=== PATIENT | male | born 1990 | race Caucasian/White ===

== ENCOUNTER 2016-12-16 18:13 | Observation (INO) ==
[2016-12-16] MEDS ORDERED: Ondansetron 4 MG/2 ML VIAL IVP ONE (18:27)
[2016-12-16] MEDS ORDERED: *HR* HYDROmorphone (PF) 1 MG/ML SYRINGE IVP ONE (18:27)
[2016-12-16] MEDS ORDERED: 0.9 % Sodium Chloride 1,000 ML IVC ONE (18:27)
--- NOTE | 2016-12-16 18:31 | Emergency Department Note ---
Disposition Clinical Impression: Acute appendicitis Qualifiers: Acute appendicitis type: unspecified acute appendicitis type Qualified Code(s) : K35.80 - Unspecified acute appendicitis Disposition: Admitted As Inpatient Condition: Good Referrals: NO,PCP [Primary Care Provider] - Forms: Work/School Release, ED Satisfaction Letter Time of Disposition: 19:57 Abdominal Pain HPI - General Chief Complaint: ED Abdominal Pain Stated Complaint: abd pain, n/v Time Seen by Provider: 12/16/16 18:24 Source: patient Mode of arrival: ambulatory Limitations: no limitations Nursing Notes Reviewed: Yes Vital Signs Reviewed: Yes - History of Present Illness HPI Narrative: Patient presents to the ED the chief complaint of abdominal pain, nausea and vomiting. Onset was about 2 days ago. Located suprapubically and around his umbilicus, but has since moved to the right lower quadrant. Associated decreased appetite. Has had nausea and nonbloody, nonbilious vomiting with anything yesterday. Pain feels sharp and stabbing, mainly in his right lower quadrant, nonradiating. Abdomen feels much more distended today and states that he cannot take the pain anymore. Denies any IV drug use. Does use marijuana. No chest pain, shortness of breath. No history of kidney stones. No family history of kidney stones. No hematuria, testicular pain, penile discharge or dysuria. Pain Scale: 10 - Related Data Allergies Allergy/AdvReac Type Severity Reaction Status Date / Time No Known Allergies Allergy Verified 12/16/16 18:17 All systems ED: reviewed and negative except as stated. Gastrointestinal: Reports: abdominal pain, nausea, vomiting. Denies: diarrhea Musculoskeletal: Denies: back pain Abdominal Pain PMH - Past Medical History Medical history: Reports: no medical history Male Surgical History: Reports: orthopedic, other Psychiatric history: Reports: no psych history - Social History Smoking status: Never smoker Alcohol use: Reports: none Drug use: Reports: marijuana Physical Exam - General Limitations: no limitations General appearance: alert, anxious, in distress (in pain, rolling around on bed holding RLQ ) - Head Head exam: atraumatic, normocephalic, normal inspection - ENT ENT exam: mucous membranes dry - Respiratory Respiratory exam: Present: normal lung sounds bilaterally - Cardiovascular Cardiovascular exam: Present: regular rate, normal rhythm, normal heart sounds - Abdominal Exam Abdominal exam: Present: soft, tenderness, distention, guarding, diminished bowel sounds, tenderness at McBurney's Point. Absent: rebound, rigidity Abdominal tenderness: Present: RLQ, moderate - Extremities Exam Extremities exam: Present: normal inspection, full ROM. Absent: tenderness, pedal edema - Back Exam Back exam: Present: normal inspection, full ROM. Absent: tenderness, CVA tenderness (R), CVA tenderness (L) - Neurological Exam Neurological exam: Present: alert, oriented X3 - Psychiatric Psychiatric exam: Present: anxious - Skin Skin exam: Present: warm, dry, intact, normal color Course Course Narrative: 26 y/o M with abd pain. Rolling around on cot, seems uncomfortable. Abd exam difficult to obtain due to guarding, appears voluntary. Will get labs, CT, pain control. - Reevaluation(s) Reevaluation #1: Patient has appendicitis. 9 mm, nonpertinent mild stranding. Spoke with Dr. Ivory with surgery. He will be in to evaluate the patient. The patient more comfortable now. Time: 19:56 Vital Signs Temperature 98.3 F 12/16/16 18:15 Pulse Rate 98 12/16/16 18:15 Respiratory Rate 18 12/16/16 18:15 Blood Pressure 168/97 12/16/16 18:15 O2 Sat by Pulse Oximetry 99 12/16/16 18:15 Temperature 98.3 F 12/16/16 18:15 Pulse Rate 74 12/16/16 18:58 Respiratory Rate 18 12/16/16 18:58 Blood Pressure 153/111 12/16/16 18:58 O2 Sat by Pulse Oximetry 99 12/16/16 18:58 Oxygen Delivery Oxygen Delivery Room Air Abdominal Pain - Lab Data Result diagrams: 12/16/16 18:58 12/16/16 18:58 Lab Results 12/16/16 12/16/16 12/16/16 Range/Units 18:58 18:58 18:58 WBC 13.2 H (4.3-11.1) K/mcL RBC 5.73 H (4.19-5.50) M/mcL Hgb 16.6 (12.9-16.9) g/dL Hct 50.0 (37.5-50.1) % MCV 87.3 (83.0-100.0) fL MCH 29.0 (28.0-33.3) pg MCHC 33.2 (31.6-35.5) g/dL RDW 12.9 (11.5-14.5) % Plt Count 149 (140-400) K/mcL MPV 10.3 (9.4-12.4) fL Immature Gran % 0.5 (0-4) % Seg Neutrophils % 92.2 % Lymphocytes % 5.0 % Monocytes % 1.9 % Eosinophils % 0.2 % Basophils % 0.2 % Neutrophils # 12.2 H (1.6-8.9) K/mcL Lymphocytes # 0.7 (0.6-4.6) K/mcL Monocytes # 0.3 (0.0-1.3) K/mcL Eosinophils # 0.0 (0.0-0.6) K/mcL Basophils # 0.0 (0.0-0.2) K/mcL PT 14.1 H (9.4-12.1) Seconds INR 1.3 APTT 25.2 L (26.0-36.0) Seconds Sodium 139 (136-145) mEq/L Potassium 4.1 (3.5-4.5) mEq/L Chloride 101 (98-109) mEq/L Carbon Dioxide 30 H (19-29) mEq/L BUN 24 (8-26) mg/dL Creatinine 0.91 (0.72-1.25) mg/dL Est GFR ( Amer) > 60 (> 60) Est GFR (Non-Af Amer) > 60 (> 60) BUN/Creatinine Ratio 26 (6-26) Glucose 103 H (70-99) mg/dL Calculated Osmolality 292 (280-300) Lactic Acid (0.5-2.2) mmol/L Calcium 9.2 (8.6-10.8) mg/dL Total Bilirubin 0.9 (0.2-1.2) mg/dL Direct Bilirubin 0.3 (0.0-0.5) mg/dL Indirect Bilirubin 0.6 (0.0-1.2) mg/dL AST 38 H (5-34) Units/L ALT 39 (0-55) Units/L Alkaline Phosphatase 57 (38-126) Units/L Serum Total Protein 7.6 (6.0-8.3) g/dL Albumin 3.8 (3.5-5.0) g/dL Globulin 3.8 H (2.4-3.5) g/dL Albumin/Globulin Ratio 1.0 L (1.1-2.2) Lipase 31 (8-78) Units/L 12/16/16 Range/Units 18:58 WBC (4.3-11.1) K/mcL RBC (4.19-5.50) M/mcL Hgb (12.9-16.9) g/dL Hct (37.5-50.1) % MCV (83.0-100.0) fL MCH (28.0-33.3) pg MCHC (31.6-35.5) g/dL RDW (11.5-14.5) % Plt Count (140-400) K/mcL MPV (9.4-12.4) fL Immature Gran % (0-4) % Seg Neutrophils % % Lymphocytes % % Monocytes % % Eosinophils % % Basophils % % Neutrophils # (1.6-8.9) K/mcL Lymphocytes # (0.6-4.6) K/mcL Monocytes # (0.0-1.3) K/mcL Eosinophils # (0.0-0.6) K/mcL Basophils # (0.0-0.2) K/mcL PT (9.4-12.1) Seconds INR APTT (26.0-36.0) Seconds Sodium (136-145) mEq/L Potassium (3.5-4.5) mEq/L Chloride (98-109) mEq/L Carbon Dioxide (19-29) mEq/L BUN (8-26) mg/dL Creatinine (0.72-1.25) mg/dL Est GFR ( Amer) (> 60) Est GFR (Non-Af Amer) (> 60) BUN/Creatinine Ratio (6-26) Glucose (70-99) mg/dL Calculated Osmolality (280-300) Lactic Acid 1.3 (0.5-2.2) mmol/L Calcium (8.6-10.8) mg/dL Total Bilirubin (0.2-1.2) mg/dL Direct Bilirubin (0.0-0.5) mg/dL Indirect Bilirubin (0.0-1.2) mg/dL AST (5-34) Units/L ALT (0-55) Units/L Alkaline Phosphatase (38-126) Units/L Serum Total Protein (6.0-8.3) g/dL Albumin (3.5-5.0) g/dL Globulin (2.4-3.5) g/dL Albumin/Globulin Ratio (1.1-2.2) Lipase (8-78) Units/L S.B.A.R. - S.DroisAShar Situation: Demographics, MOA Background: Presenting Complaint, Relevant PMH, Meds, & Allergies Assessment: Vital Signs, Course and respsone to treatment, Exam Concerns, Patient/Family Expectation, Pertinant Lab Results, Outstanding Labs Recommendation: Barrier(s) to disposition, Recommendation based on pending studies, treatments, or consults S.B.A.RTruong Report Given to: Dr. Cachorro Silverman Repor Time: 19:58 Attestation Statement - Attestation Attestation: I examined this patient and my medical decision-making was reviewed with the STAND GRINDER/PA/Advanced Practice Nurse/Resident Physician. I agree with the documented findings, disposition and treatment plan as described except to the extent set forth below. 26-year-old male presents ED because of abdominal pain. He has had 48 hours of pain in his lower abdomen that is now more intense and more the right lower quadrant. Complains of nausea and vomiting. No diarrhea. No fever. No chills. No dysuria, hematuria or polyuria. No flank or back pain. Patient appears very uncomfortable. He is awake alert and oriented. Oropharynx is clear. Mucous membranes dry. Chest is clear to auscultation bilaterally. Cardiac exam regular. Abdomen bowel sounds are normal throughout. He has moderate tenderness in the suprapubic and right lower quadrants. Left abdomen nontender. Flanks are nontender. No inguinal adenopathy or hernia appreciated. He is given 2 L of IV fluid along with pain control measures. White count 13,000 CT of the abdomen consistent with acute appendicitis. Case was discussed with on-call surgeon, Dr. Ivory, and he will see the patient in the ED and prepare for Surgery.
[2016-12-16 19:09] LABS: Basophils % 0.2 %; Eosinophils % 0.2 %; Hemoglobin 16.6 g/dL (12.9-16.9); Immature Granulocytes % 0.5 % (0-4); Lymphocytes # 0.7 K/mcL (0.6-4.6); Mean Corpuscular HGB Conc 33.2 g/dL (31.6-35.5); Mean Corpuscular Volume 87.3 fL (83.0-100.0); Mean Platelet Volume 10.3 fL (9.4-12.4); Monocytes # 0.3 K/mcL (0.0-1.3); Monocytes % 1.9 %; Neutrophils # 12.2 K/mcL (1.6-8.9); Platelet Count 149 K/mcL (140-400); Red Blood Count 5.73 M/mcL (4.19-5.50); Red Cell Distribution Width 12.9 % (11.5-14.5); Segmented Neutrophils % 92.2 %
[2016-12-16 19:12] LABS: INR 1.3; Prothrombin Time 14.1 Seconds (9.4-12.1)
[2016-12-16 19:15] LABS: Activated Partial Thrombo Time 25.2 Seconds (26.0-36.0)
[2016-12-16 19:19] LABS: Alanine Aminotransferase 39 Units/L (0-55); Albumin 3.8 g/dL (3.5-5.0); Alkaline Phosphatase 57 Units/L (38-126); Aspartate Amino Transferase 38 Units/L (5-34); BUN/Creatinine Ratio 26 (6-26); Bilirubin,Direct 0.3 mg/dL (0.0-0.5); Bilirubin,Indirect 0.6 mg/dL (0.0-1.2); Bilirubin,Total 0.9 mg/dL (0.2-1.2); Blood Urea Nitrogen 24 mg/dL (8-26); Calcium 9.2 mg/dL (8.6-10.8); Carbon Dioxide 30 mEq/L (19-29); Chloride 101 mEq/L (98-109); Globulin 3.8 g/dL (2.4-3.5); Glucose 103 mg/dL (70-99); Lipase 31 Units/L (8-78); Osmolality,Calculated 292 (280-300); Potassium 4.1 mEq/L (3.5-4.5); Sodium 139 mEq/L (136-145); Total Protein 7.6 g/dL (6.0-8.3); eGFR For African Americans > 60 (> 60); eGFR For Non-African Americans > 60 (> 60)
[2016-12-16] MEDS ORDERED: Ringers Solution, Lactated 1,000 ML IVC ONE ×2 (19:55)
--- NOTE | 2016-12-16 20:35 | General Surg History&Physical ---
Date of Encounter: 12/16/16 Time of Encounter: 20:33 Assessment and Plan (1) Acute appendicitis Current Visit: Yes Status: Acute The assessment and plan as outlined above was discussed with the patient and/or family members who expressed understanding and agreement. All questions were answered. I personally reviewed the CT scan images and report and agree that he has evidence of acute appendicitis. I explained to the patient that we will proceed with a laparoscopic appendectomy. Risks and benefits have been discussed with the patient, and he agrees to the above plan. Qualifiers: Acute appendicitis type: with localized peritonitis Qualified Code(s): K35.3 - Acute appendicitis with localized peritonitis History of Present Illness Chief complaint: Lower abdominal pain HPI: Mr. Kirk is a 26 year old male with no significant past medical history who states that over the past two days he has been having lower periumbical pain that has been progressively worsening. The pain is sharp and continuous and he states that he has to sleep or roll on his left side in order to "get comfortable." He admits to nausea and vomiting and denies any diarrhea or constipation. Past Med Surg Social Fam HX - Past Medical History Medical history: no medical history Psychiatric history: no psych history - Past Surgical History Surgical History: herniorrhaphy (bilateral hernia repair (as a child)), other ( Left shoulder pinning) - Social History Smoking Status: Never smoker Smokeless Tobacco Status: No Alcohol use: none Drug use: marijuana Medications and Allergies No Known Home Drugs 12/16/16 [History] Allergies No Known Allergies Allergy (Verified 12/16/16 18:17) Review of Systems All systems PM: reviewed and no additional remarkable complaints except as stated (Drug rehabilitation history) All systems PM: A 10-system review of systems was performed and is negative for pertinent findings except as documented above in the HPI. General Surgery Exam Initial Vital Signs Temp Pulse Resp BP Pulse Ox 98.3 F 98 18 168/97 99 12/16/16 18:15 12/16/16 18:15 12/16/16 18:15 12/16/16 18:15 12/16/16 18:15 - Eyes PERRL, normal ocular movement - Respiratory normal expansion, normal respiratory effort, clear to auscultation - Cardiovascular Cardiovascular exam: Present: RRR, no murmurs/rubs/gallops - Abdomen Abdomen general surgery: Present: bowel sounds present (flat, mildly rigid. Positive pain to palpation RLQ>LLQ) - Integumentary Integumentary general surgery: Present: warm and dry - Neurologic Present: CN 2-12 grossly intact - Musculoskeletal Present: other (No clubbing, cyanosis, or edema) - Psychiatric Psychiatric general surgery: Present: A&Ox3 Results - Labs 12/16/16 18:58 12/16/16 18:58 Abnormal lab results WBC 13.2 K/mcL (4.3-11.1) H 12/16/16 18:58 RBC 5.73 M/mcL (4.19-5.50) H 12/16/16 18:58 Neutrophils # 12.2 K/mcL (1.6-8.9) H 12/16/16 18:58 PT 14.1 Seconds (9.4-12.1) H 12/16/16 18:58 APTT 25.2 Seconds (26.0-36.0) L 12/16/16 18:58 Carbon Dioxide 30 mEq/L (19-29) H 12/16/16 18:58 Glucose 103 mg/dL (70-99) H 12/16/16 18:58 AST 38 Units/L (5-34) H 12/16/16 18:58 Globulin 3.8 g/dL (2.4-3.5) H 12/16/16 18:58 Albumin/Globulin Ratio 1.0 (1.1-2.2) L 12/16/16 18:58 Diabetes panel 12/16/16 Range/Units 18:58 Sodium 139 (136-145) mEq/L Potassium 4.1 (3.5-4.5) mEq/L Chloride 101 (98-109) mEq/L Carbon Dioxide 30 H (19-29) mEq/L BUN 24 (8-26) mg/dL Creatinine 0.91 (0.72-1.25) mg/dL Glucose 103 H (70-99) mg/dL Calcium 9.2 (8.6-10.8) mg/dL AST 38 H (5-34) Units/L ALT 39 (0-55) Units/L Alkaline Phosphatase 57 (38-126) Units/L Albumin 3.8 (3.5-5.0) g/dL Calcium panel 12/16/16 Range/Units 18:58 Calcium 9.2 (8.6-10.8) mg/dL Albumin 3.8 (3.5-5.0) g/dL Pituitary panel 12/16/16 Range/Units 18:58 Sodium 139 (136-145) mEq/L Potassium 4.1 (3.5-4.5) mEq/L Chloride 101 (98-109) mEq/L Carbon Dioxide 30 H (19-29) mEq/L BUN 24 (8-26) mg/dL Creatinine 0.91 (0.72-1.25) mg/dL Glucose 103 H (70-99) mg/dL Calcium 9.2 (8.6-10.8) mg/dL Adrenal panel 12/16/16 Range/Units 18:58 Sodium 139 (136-145) mEq/L Potassium 4.1 (3.5-4.5) mEq/L Chloride 101 (98-109) mEq/L Carbon Dioxide 30 H (19-29) mEq/L BUN 24 (8-26) mg/dL Creatinine 0.91 (0.72-1.25) mg/dL Glucose 103 H (70-99) mg/dL Calcium 9.2 (8.6-10.8) mg/dL Total Bilirubin 0.9 (0.2-1.2) mg/dL AST 38 H (5-34) Units/L ALT 39 (0-55) Units/L Alkaline Phosphatase 57 (38-126) Units/L Albumin 3.8 (3.5-5.0) g/dL All other labs normal. - Imaging CT scan - abdomen: report reviewed, image reviewed (Evidence of acute appendicitis. No free air. No free fluid.)
--- NOTE | 2016-12-16 20:36 | Anesthesia Evaluation PreOp ---
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: Denies Any Significant HX Other Medical History: Denies Any Significant HX, Other (subutex use) Anesthesia History: No Prior Anesthetic Complications, Past Anesthesia (shoulder ) Alcohol Use: none Drug use: marijuana Medications and Allergies No Known Home Drugs 12/16/16 [History] Allergies No Known Allergies Allergy (Verified 12/16/16 18:17) - Meds/Allergy Pre-op Review Medications Reviewed: Yes Allergies Reviewed: Yes Beta Blockers on Current Med List: No Anesthesia Results - Labs 12/16/16 18:58 12/16/16 18:58 Anesthesia Exam Last Vital Signs Temp 98.3 F 12/16/16 18:15 Pulse 74 12/16/16 18:58 Resp 18 12/16/16 20:48 BP 159/98 12/16/16 20:48 Pulse Ox 99 12/16/16 18:58 Weight: 82 kg NPO (# of Hours): >> 8 hrs - HEENT Pupil (Motor): Pupils equal, EOMI Mallampati: II Teeth: Normal Oral Opening: Greater than 3 - LEAD VULCANIZING OPERATOR LOC: Oriented LEAD VULCANIZING OPERATOR Motor: Normal RUE, Normal LUE, Normal RLE, Normal LLE, Normal Face LEAD VULCANIZING OPERATOR Sensory: Normal: RUE, LUE, RLE, LLE, Face - Cardiac Rhythm: Regular Murmur: None - Pulmonary Breath Sounds: bilateral Clear Respiratory Effort: Symmetrical Anesthesia Assess/Plan ASA Score: 2 Modified Scotty Scale for Level of Consciousness: Cooperative, oriented, and tranquil Anesthetic Plan: General Monitoring Plan: Standard Monitors Recovery Plan: PACU
[2016-12-16] MEDS ORDERED: *HR* Succinylcholine 200 MG/10 ML VIAL IVP ONE (20:39)
[2016-12-16] MEDS ORDERED: Lidocaine -MPF 2% 2 ML VIAL ONE (20:39)
[2016-12-16] MEDS ORDERED: *HR* Propofol 200 MG/20 ML VIAL IVP ONE (20:39)
[2016-12-16] MEDS ORDERED: *HR* FentaNYL (PF) 100 MCG/2 ML VIAL ONE (20:42)
[2016-12-16] MEDS ORDERED: *HR* Phenylephrine 10 MG/ML VIAL ONE (20:43)
[2016-12-16] MEDS ORDERED: *HR* Midazolam HCl 2 MG/2 ML VIAL ONE (20:43)
[2016-12-16] MEDS ORDERED: *HR* Promethazine 25 MG/ML VIAL IVP PRN (20:59)
[2016-12-16] MEDS ORDERED: *HR* HYDROmorphone (PF) 1 MG/ML SYRINGE IVP PRN (20:59)
[2016-12-16] MEDS ORDERED: CefOXitin 2,000 MG VIAL IVPB ONE (21:01)
[2016-12-16] MEDS ORDERED: PROMETHAZINE IVP PRN (21:03)
[2016-12-16] MEDS ORDERED: SODIUM CHLORIDE 0.9% IVP PRN (21:03)
[2016-12-16] MEDS ORDERED: Ketamine *HR* 500 MG/10 ML MDV ONE (21:25)
[2016-12-16] MEDS ORDERED: Ondansetron 4 MG/2 ML VIAL ONE (21:25)
[2016-12-16] MEDS ORDERED: Dexamethasone 4 MG/ML VIAL ONE (21:25)
[2016-12-16] MEDS ORDERED: Ketorolac 30 MG/ML VIAL ONE (21:25)
[2016-12-16] MEDS ORDERED: Neostigmine Methylsulfate 3 MG/3 ML SYRINGE ONE (21:28)
[2016-12-16] MEDS ORDERED: *HR* HYDROmorphone 2 MG/ML SYRINGE ONE (21:37)
--- NOTE | 2016-12-16 21:54 | Operative Note ---
Date of procedure: 12/16/16 Pre-op diagnosis: Acute appendicitis Post-op diagnosis: same Procedure: Laparoscopic appendectomy Anesthesia: GETAntoine Surgeon: Douglas Ivory Specimen: appendix Condition: stable Disposition: PACU Procedure in Detail: Date of surgery: 12/16/16 After properly identifying the patient, the patient was brought to the operating room and placed in supine position. After proper IV sedation was achieved followed by general endotracheal intubation, the patient's abdomen was prepped and draped in a normal sterile fashion. A timeout was performed noting the patient's name and procedure to be performed. A subumbilical incision with an 11 blade scalpel was made down to the level of the rectus fascia. The rectus fascia was incised and the abdomen was entered and a 12 mm port was placed through the port followed by insufflation with carbon dioxide. A laparoscopic camera was placed through the port which showed no injury to the interabdominal organs upon entry. A suprapubic 5 mm port in the left lower quadrant 5 mm port was then placed under direct camera visualization. The right lower quadrant was examined and the appendix was noted to be distended, erythematous and even partially necrotic. The appendix was retracted anteriorly with a nontraumatic grasper. The base of the appendix and then measle appendix were dissected with the [place] dissector. The base of the appendix was then transected with a laparoscopic NOE stapler. The mesoappendix was likewise transected with a laparoscopic NOE stapler. The appendix were then removed from the abdomen via an Endobag. The right lower quadrant and pelvis were copiously irrigated with normal saline solution. Reinspection of the right lower quadrant demonstrated maintenance of hemostasis. All ports were then removed from the abdomen after the abdomen was desufflated. The rectus fascia for the subumbilical incision was closed with a figure-of- eight 0 Vicryl suture. Subcutaneous tissue was reapproximated with a 3-0 Vicryl suture. The epidermal and dermal layers for the remaining incisions were closed with 4-0 Monocryl sutures. Needle, sponge, and instrument counts were correct 2 and the incisions were covered with Steri-Strips and Band-Aids. The patient was aroused from IV sedation, extubated in the operating room without complication, and transported to the recovery room stable condition.
[2016-12-16] MEDS ORDERED: *HR* Midazolam HCl 2 MG/2 ML VIAL IVP PRN (22:15)
[2016-12-16] MEDS ORDERED: Acetaminophen IV 1,000 MG/100 ML INFUS..BTL IVPB ONE (22:30)
[2016-12-16] MEDS ORDERED: Acetaminophen IV 1,000 MG/100 ML INFUS..BTL ONE (22:32)
--- NOTE | 2016-12-16 22:50 | Anesthesia Evaluation Post Op ---
Date of Encounter: 12/16/16 Time of Encounter: 22:49 - Vital Signs Vital Signs: Last Vital Signs Temp 100.4 F H 12/16/16 22:45 Pulse 85 12/16/16 22:45 Resp 16 12/16/16 22:45 BP 150/86 12/16/16 22:45 Pulse Ox 94 12/16/16 22:45 - Lungs Lungs: Clear Ascult./Percussion - Airway Airway: Non-obstructed - Cardiovascular Regular Rate - Mental Status Mental Status: Alert & Oriented, Answers Appropriately - Pain Pain Scale: 2 - Nausea Vomiting Nausea Vomiting: Not Present - Hydration Hydration: Ice chips - Discharge PostOp Status: Transfer Patient to floor
[2016-12-16] MEDS ORDERED: *HR* OxyCODONE/APAP 10/325 TABLET PO PRN (22:55)
[2016-12-16] MEDS ORDERED: 0.9 % Sodium Chloride 1,000 ML IVC SCH (22:55)
[2016-12-16] MEDS: *HR* HYDROmorphone (PF) 1 MG/ML SYRINGE IVP PRN (23:14)
[2016-12-16] MEDS: cefOXitin 1,000 MG in D5% in Water (Mini-Bag+) 100 ML IVPB SCH (23:20)
[2016-12-17] MEDS ORDERED: Ketorolac 30 MG/ML VIAL IM SCH
[2016-12-17] MEDS: Ketorolac 30 MG/ML VIAL IVP SCH ×2 (00:36→06:14)
[2016-12-17] MEDS: cefOXitin 1,000 MG in D5% in Water (Mini-Bag+) 100 ML IVPB SCH ×2 (00:37→07:52)
[2016-12-17 03:45] LABS: Basophils % 0.1 %; Hemoglobin 15.8 g/dL (12.9-16.9); Immature Granulocytes % 0.2 % (0-4); Lymphocytes # 0.6 K/mcL (0.6-4.6); Lymphocytes % 4.1 %; Mean Corpuscular HGB Conc 32.9 g/dL (31.6-35.5); Mean Corpuscular Hemoglobin 28.7 pg (28.0-33.3); Mean Corpuscular Volume 87.3 fL (83.0-100.0); Mean Platelet Volume 10.8 fL (9.4-12.4); Monocytes # 0.8 K/mcL (0.0-1.3); Monocytes % 5.2 %; Neutrophils # 13.4 K/mcL (1.6-8.9); Platelet Count 149 K/mcL (140-400); Segmented Neutrophils % 90.4 %
[2016-12-17 04:03] LABS: BUN/Creatinine Ratio 18 (6-26); Blood Urea Nitrogen 16 mg/dL (8-26); Carbon Dioxide 26 mEq/L (19-29); Chloride 104 mEq/L (98-109); Glucose 125 mg/dL (70-99); Osmolality,Calculated 289 (280-300); Potassium 4.4 mEq/L (3.5-4.5); Sodium 138 mEq/L (136-145); eGFR For African Americans > 60 (> 60); eGFR For Non-African Americans > 60 (> 60)
[2016-12-17] MEDS ORDERED: *HR* Heparin 5,000 UNIT/ML VIAL SQ SCH (06:00)
[2016-12-17] MEDS: *HR* HYDROmorphone (PF) 1 MG/ML SYRINGE IVP PRN (06:35)
[2016-12-17 07:24] VITALS: BP 146/68
--- NOTE | 2016-12-17 08:03 | Discharge Summary ---
Date of Encounter: 12/18/16 Time of Encounter: 08:01 - Discharge Diagnosis (1) Acute appendicitis Priority: Primary Status: Acute Qualifiers: Acute appendicitis type: with localized peritonitis Qualified Code(s): K35.3 - Acute appendicitis with localized peritonitis - Discharge Medications Prescriptions: OxyCODONE Immed Rel [Roxicodone 5 MG] 5 mg PO Q6HR PRN #26 tablet PRN Reason: Pain Amoxicillin/Clavulanate [Augmentin] 875 mg PO BIDWM #10 tablet Home Medications: Amoxicillin/Clavulanate [Augmentin] 875 mg PO BIDWM #10 tablet 12/17/16 [Rx] OxyCODONE Immed Rel [Roxicodone 5 MG] 5 mg PO Q6HR PRN #26 tablet 12/17/16 [Rx] Allergies/Adverse Reactions: Allergies No Known Allergies Allergy (Verified 12/16/16 18:17) General Surgery Exam Initial Vital Signs Temp Pulse Resp BP Pulse Ox 98.3 F 98 18 168/97 99 12/16/16 18:15 12/16/16 18:15 12/16/16 18:15 12/16/16 18:15 12/16/16 18:15 - Eyes PERRL, normal ocular movement - Abdomen Abdomen general surgery: Present: soft, tender (mild incisional pain. Band- Aids in place.) Date of admission: 12/16/16 20:40 Primary care physician: PCP NO Discharging clinician: Douglas Ivory Anticipated date of discharge: 12/17/16 - Patient Status Disposition: Home, Self-Care Overall status at discharge: patient is progressing back to baseline - Discharge Instructions Instructions: Appendicitis (DC) Follow Up With: Douglas Ivory MD [Partnered Physician] - (Sent web request. 12/17/16) NO,PCP [Primary Care Provider] - - Diet and Activity Activity: other (No heavy lifting greater than 15lbs for two weeks.) - Hospital Course Hospital course: Mr. Kirk is a 26 year old male with no significant past medical history presented to [facility] with a two day history of periumbilical abdominal pain. He had an elevated WBC and a CT scan showing acute appendicitis. He underwent a laparoscopic appendectomy on the same day without complication. On POD#1 he did note periumbilical pain, but not as severe as it was on presentation. He tolerated a PO diet and due to his overall improvement, he was discharged home with instructions to follow up in two weeks. Time spent discussing smoking cessation with patient: 3 to 10 minutes - Time Spent with Patient Total time spent providing and/or coordinating discharge services: Specific discharge activities: No heavy lifting greater than 15lbs for two weeks. May remove Band-Aids tomorrow. May shower tomorrow. Labs on day of discharge: Labs from last 24 hours 12/17/16 12/17/16 03:25 03:25 WBC 14.9 H RBC 5.50 Hgb 15.8 Hct 48.0 MCV 87.3 MCH 28.7 MCHC 32.9 RDW 13.0 Plt Count 149 MPV 10.8 Immature Gran % 0.2 Seg Neutrophils % 90.4 Lymphocytes % 4.1 Monocytes % 5.2 Eosinophils % 0.0 Basophils % 0.1 Neutrophils # 13.4 H Lymphocytes # 0.6 Monocytes # 0.8 Eosinophils # 0.0 Basophils # 0.0 Sodium 138 Potassium 4.4 Chloride 104 Carbon Dioxide 26 BUN 16 Creatinine 0.87 Est GFR ( Amer) > 60 Est GFR (Non-Af Amer) > 60 BUN/Creatinine Ratio 18 Glucose 125 H Calculated Osmolality 289 Calcium 9.0
[2016-12-17] MEDS ORDERED: *HR* OxyCODONE Immed Rel 5 MG TABLET PO PRN (08:06)
[2016-12-17] MEDS ORDERED: Pantoprazole 40 MG VIAL IVP SCH (09:00)
--- NOTE | 2016-12-17 10:24 | Venous Imaging Report ---
LE Venous Duplex Patient Name:Yvon Kirk Order Number:[id number] Procedure Date:12/17/2016 Date:1990Age:26 yrs Gender:Male Location:[facility] Room #: 3A55 Mesh Cutter:Tanya Aguirrejosé miguel Referring MD:Douglas Ivory MD hybrid corn breeder:None Reading MD:Kaiser Villavicencio MD Primary Indications:R/O DVT bilateral lower extremity Secondary Indications: Impressions: Normal bilateral lower extremity deep and superficial venous exam. Recommendations: After imaging the patient returned to their room. Findings Venous Duplex Results: Right: Venous imaging of the lower extremity reveals full patency and normal vessel compressibility of the right distal iliac, right common femoral, right superficial femoral, right popliteal, right posterior tibial, right peroneal, right great saphenous and right lesser saphenous. Doppler signals in the evaluated veins were normal. Left: Venous imaging of the lower extremity reveals full patency and normal vessel compressibility of the left distal iliac, left common femoral, left superficial femoral, left popliteal, left posterior tibial, left peroneal, left great saphenous and left lesser saphenous. Doppler signals in the evaluated veins were normal. Prior Study: No prior study available for comparison. Lower Extremity Venous Duplex Side Vein Compress Spontaneous Flow Augment Diameter (cm) Depth (cm) Right Distal Iliac Normal Yes Phasic Yes Right Common Femoral Normal Yes Phasic Yes Right Superficial Femoral Normal Yes Phasic Yes Right Popliteal Normal Yes Phasic Yes Right Posterior Tibial Normal Yes Phasic Yes Right Peroneal Normal Yes Phasic Yes Right Great Saphenous Normal Yes Phasic Yes Right Lesser Saphenous Normal Yes Phasic Yes Left Distal Iliac Normal Yes Phasic Yes Left Common Femoral Normal Yes Phasic Yes Left Superficial Femoral Normal Yes Phasic Yes Left Popliteal Normal Yes Phasic Yes Left Posterior Tibial Normal Yes Phasic Yes Left Peroneal Normal Yes Phasic Yes Left Great Saphenous Normal Yes Phasic Yes Left Lesser Saphenous Normal Yes Phasic Yes Updated by Kaiser Villavicencio MD on 12/17/2016 10:18:37 AM electronically signed on 12/17/2016 10:18:56 AM with status of Final
== END 2016-12-17 10:30 | disposition home or self-care (01) ==
LOC: 3ANU 18:13 → EMEROO 18:13 → 3ANU 20:47
PROVIDERS: ADMIT Surgery; ATTEND Surgery